=== PATIENT | female | born 1940 | race Caucasian/White ===

== ENCOUNTER 2024-02-24 19:12 | Observation (INO) | payer MEDICARE, BC ==
--- NOTE | 2024-02-24 19:32 | ED ---
General Adult HPI - General Source: patient, RN notes reviewed, old records reviewed <Dain Malave - Last Filed: 02/24/24 20:47> <Dain Pizarro - Last Filed: 02/24/24 23:16> - General Stated complaint: Possibly Stroke Time Seen by Provider: 02/24/24 19:15 - History of Present Illness Initial comments: This is 83-year-old female who presents to the emergency department stating that at about 2 hours ago she started having the inability to coordinate her right hand and she had some numbness in her right hand. Patient states that lasted for about an hour and a half and then it is completely resolved at this time. Patient states she was trying to text her daughter but she was unable to coordinate her hand to do so. Denies any headache. Patient denies any other weakness or numbness. Patient denies any visual disturbance. Patient denies any speech disturbance. Patient denies chest pain difficulty breathing shortness of breath. Patient Nu[place] any abdominal pain patient has nausea vomiting diarrhea. (Dain Malave) - Related Data Allergies Allergy/AdvReac Type Severity Reaction Status Date / Time No Known Allergies Allergy Verified 02/24/24 19:33 Review of Systems ROS Other: All systems not noted in ROS Statement are negative. <Dain Malave - Last Filed: 02/24/24 20:47> ROS Other: All systems not noted in ROS Statement are negative. <Dain Pizarro - Last Filed: 02/24/24 23:16> ROS Statement: Those systems with pertinent positive or pertinent negative responses have been documented in the HPI. General Exam <Dain Malave - Last Filed: 02/24/24 20:47> General appearance: alert, in no apparent distress Head exam: Present: atraumatic, normocephalic, normal inspection Eye exam: Present: normal appearance, PERRL, EOMI. Absent: scleral icterus, c onjunctival injection, periorbital swelling ENT exam: Present: normal exam, mucous membranes moist Neck exam: Present: normal inspection. Absent: tenderness, meningismus, lymphadenopathy Respiratory exam: Present: normal lung sounds bilaterally. Absent: respiratory distress, wheezes, rales, rhonchi, stridor Cardiovascular Exam: Present: regular rate, normal rhythm, normal heart sounds. Absent: systolic murmur, diastolic murmur, rubs, gallop, clicks GI/Abdominal exam: Present: soft, normal bowel sounds. Absent: distended, tenderness, guarding, rebound, rigid Extremities exam: Present: normal inspection, full ROM, normal capillary refill. Absent: tenderness, pedal edema, joint swelling, calf tenderness Back exam: Present: normal inspection Neurological exam: Present: alert, oriented X3, CN II-XII intact Psychiatric exam: Present: normal affect, normal mood Skin exam: Present: warm, dry, intact, normal color. Absent: rash <Dain Pizarro - Last Filed: 02/24/24 23:16> - General Exam Comments Initial Comments: GENERAL: Patient is well-developed and well-nourished. Patient is nontoxic and well- hydrated and is in no acute distress. ENT: Neck is soft and supple. No significant lymphadenopathy is noted. Oropharynx is clear. Moist mucous membranes. Neck has full range of motion without eliciting any pain. EYES: The sclera were anicteric and conjunctiva were pink and moist. Extraocular movements were intact and pupils were equal round and reactive to light. Eyelids were unremarkable. PULMONARY: Unlabored respirations. Good breath sounds bilaterally. No audible rales rhonchi or wheezing was noted. CARDIOVASCULAR: There is a regular rate and rhythm without any murmurs gallops or rubs. ABDOMEN: Soft and nontender with normal bowel sounds. SKIN: Skin is clear with no lesions or rashes and otherwise unremarkable. NEUROLOGIC: Patient is alert and oriented x3. Cranial nerves II through XII are grossly intact. Motor and sensory are also intact. Normal speech, volume and content. Symmetrical smile. NIH is 0 MUSCULOSKELETAL: Normal extremities with adequate strength and full range of motion. No lower extremity swelling or edema. No calf tenderness. LYMPHATICS: No significant lymphadenopathy is noted PSYCHIATRIC: Patient is very anxious. (Dain Malave) Course <Dain Pizarro - Last Filed: 02/24/24 23:16> Vital Signs 02/24/24 19:14 Temperature 98.1 F Pulse Rate 87 Respiratory 18 Rate Blood Pressure 214/92 O2 Sat by Pulse 98 Oximetry - Reevaluation(s) Reevaluation #1: 02/24/24 23:14 Records reviewed (Dain Pizarro) Reevaluation #2: 02/24/24 23:15 Symptoms are improved remain resolved (Dain Pizarro) Reevaluation #3: 02/24/24 23:15 Patient informed of results questions answered (Dain Pizarro) Reevaluation #4: 02/24/24 23:15 Differential CVA Ischemic stroke, hemorrhagic stroke, brain tumor, atypical migraine, Wernicke's encephalopathy, seizure, multiple sclerosis, meningitis, encephalitis, hypoglycemia, Guillain-Pandey, electrolytes disturbance, myasthenia gravis.... This is not meant to be an all-inclusive list (Dain Pizarro) - Consultations Consultation #1: spoke with Dr Hoffmann re admission he will see the patient (Dain Pizarro) Medical Decision Making - Lab Data Result diagrams: 02/24/24 19:55 <Dain Malave - Last Filed: 02/24/24 20:47> - Lab Data Result diagrams: 02/24/24 19:55 02/24/24 19:55 - Radiology Data Radiology results: report reviewed (CT brain CT angio, negative for acute disease), image reviewed <Dain Pizarro - Last Filed: 02/24/24 23:16> - Medical Decision Making EKG is interpreted by myself. EKG shows a sinus rhythm at 82 bpm FL interval 166 QRS is 78 QT interval is 353 QTc is 392. Patient's EKG shows no ST segment elevation or depression. Was pt. sent in by a medical professional or institution (, PA, SHORT PIECE HANDLER, urgent care, hospital, or fci...) When possible be specific @ -[No] Did you speak to anyone other than the patient for history (EMS, parent, family, police, friend...)? What history was obtained from this source @ -[No] Did you review nursing and triage notes (agree or disagree)? Why? @ -[I reviewed and agree with nursing and triage notes] Were old charts reviewed (outside hosp., previous admission, EMS record, old EKG, old radiological studies, urgent care reports/EKG's, fci records)? Report findings @ -[No old charts were reviewed] Differential Diagnosis? @ -Differential CVA Ischemic stroke, hemorrhagic stroke, brain tumor, atypical migraine, Wernicke's encephalopathy, seizure, multiple sclerosis, meningitis, encephalitis, hypoglycemia, Guillain-Pandey, electrolytes disturbance, myasthenia gravis.... This is not meant to be an all-inclusive list EKG interpreted by me (3pts min.). @ -[As above] X-rays interpreted by me (1pt min.). @ -[None done] CT interpreted by me (1pt min.). @ -[None done] U/S interpreted by me (1pt. min.). @ -[None done] What testing was considered but not performed or refused? (CT, X-rays, U/S, labs)? Why? @ -[None] What meds were considered but not given or refused? Why? @ -[None] Did you discuss the management of the patient with other professionals (professionals i.e. , PA, SHORT PIECE HANDLER, lab, RT, psych nurse, social worker psychiatric, arts and sciences dean, teacher, science and operations officer, patient case coordinator)? Give summary @ -[No] Was smoking cessation discussed for >3mins.? @ -[No] Was critical care preformed (if so, how long)? @ -[No] Were there social determinants of health that impacted care today? How? (Homelessness, low income, unemployed, alcoholism, drug addiction, transpor tation, low edu. Level, literacy, decrease access to med. care, senior care, rehab)? @ -[No] Was there de-escalation of care discussed even if they declined (Discuss DNR or withdrawal of care, Hospice)? DNR status @ -[No] What co-morbidities impacted this encounter? (DM, HTN, Smoking, COPD, CAD, Cancer, CVA, ARF, Chemo, Hep., AIDS, mental health diagnosis, sleep apnea, morbid obesity)? @ -[None] Was patient admitted / discharged? Hospital course, mention meds given and route, prescriptions, significant lab abnormalities, going to OR and other pertinent info. @ -Patient is awaiting CAT scan of her brain and CTA of her head and neck. Patient's care will be taken over by Dr. Pizarro at 9 PM (Dain Malave) 83 female will be admitted for TIA, symptoms are and remain resolved here in the emergency department. CT CTA negative patient feeling well and will admit for neurology evaluation (Dain Pizarro) - Lab Data Lab Results 02/24/24 02/24/24 02/24/24 Range/Units 19:55 19:55 19:55 WBC 4.5 (3.8-10.6) k/uL RBC 3.99 (3.80-5.40) m/uL Hgb 12.8 (11.4-16.0) gm/dL Hct 37.7 (34.0-46.0) % MCV 94.4 (80.0-100.0) fL MCH 32.1 (25.0-35.0) pg MCHC 34.1 (31.0-37.0) g/dL RDW 12.3 (11.5-15.5) % Plt Count 180 (150-450) k/uL MPV 8.2 Neutrophils % 43 % Lymphocytes % 43 % Monocytes % 8 % Eosinophils % 3 % Basophils % 1 % Neutrophils # 1.9 (1.3-7.7) k/uL Lymphocytes # 1.9 (1.0-4.8) k/uL Monocytes # 0.3 (0-1.0) k/uL Eosinophils # 0.1 (0-0.7) k/uL Basophils # 0.0 (0-0.2) k/uL PT 10.4 (10.0-12.5) sec INR 0.9 (<1.2) APTT 18.4 L (22.0-30.0) sec Sodium 136 L (137-145) mmol/L Potassium 4.3 (3.5-5.1) mmol/L Chloride 104 (98-107) mmol/L Carbon Dioxide 27 (22-30) mmol/L Anion Gap 5 mmol/L BUN 18 H (7-17) mg/dL Creatinine 0.83 (0.52-1.04) mg/dL Est GFR (CKD-EPI)AfAm 75 (>60 ml/min/1.73 sqM) Est GFR (CKD-EPI)NonAf 65 (>60 ml/min/1.73 sqM) Glucose 230 H (74-99) mg/dL Calcium 9.6 (8.4-10.2) mg/dL Total Bilirubin 0.6 (0.2-1.3) mg/dL AST 23 (14-36) U/L ALT 20 (4-34) U/L Alkaline Phosphatase 87 (38-126) U/L Creatine Kinase 31 (30-135) U/L Troponin I (0.000-0.034) ng/mL Total Protein 6.0 L (6.3-8.2) g/dL Albumin 3.7 (3.5-5.0) g/dL 02/24/24 Range/Units 19:55 WBC (3.8-10.6) k/uL RBC (3.80-5.40) m/uL Hgb (11.4-16.0) gm/dL Hct (34.0-46.0) % MCV (80.0-100.0) fL MCH (25.0-35.0) pg MCHC (31.0-37.0) g/dL RDW (11.5-15.5) % Plt Count (150-450) k/uL MPV Neutrophils % % Lymphocytes % % Monocytes % % Eosinophils % % Basophils % % Neutrophils # (1.3-7.7) k/uL Lymphocytes # (1.0-4.8) k/uL Monocytes # (0-1.0) k/uL Eosinophils # (0-0.7) k/uL Basophils # (0-0.2) k/uL PT (10.0-12.5) sec INR (<1.2) APTT (22.0-30.0) sec Sodium (137-145) mmol/L Potassium (3.5-5.1) mmol/L Chloride (98-107) mmol/L Carbon Dioxide (22-30) mmol/L Anion Gap mmol/L BUN (7-17) mg/dL Creatinine (0.52-1.04) mg/dL Est GFR (CKD-EPI)AfAm (>60 ml/min/1.73 sqM) Est GFR (CKD-EPI)NonAf (>60 ml/min/1.73 sqM) Glucose (74-99) mg/dL Calcium (8.4-10.2) mg/dL Total Bilirubin (0.2-1.3) mg/dL AST (14-36) U/L ALT (4-34) U/L Alkaline Phosphatase (38-126) U/L Creatine Kinase (30-135) U/L Troponin I <0.012 (0.000-0.034) ng/mL Total Protein (6.3-8.2) g/dL Albumin (3.5-5.0) g/dL Critical Care Time Critical Care Time: Yes Total Critical Care Time: 31 <Dain Pizarro - Last Filed: 02/24/24 23:16> Disposition <Dain Malave - Last Filed: 02/24/24 20:47> Is patient prescribed a controlled substance at d/c from ED?: No Time of Disposition: 23:05 <Dain Pizarro - Last Filed: 02/24/24 23:16> Clinical Impression: Transient cerebral ischemia Disposition: ADMITTED IP TO THIS HOSP Condition: Fair Referrals: None,Stated [REFERRING] - 1-2 days
[2024-02-24] MEDS: LORazepam 2 MG/ML INJ IV STA (19:44)
[2024-02-24] MEDS: SODIUM CHLORIDE 0.9% 500 ML 500 ML IV STA ×2 (19:47→23:10)
[2024-02-24 20:17] LABS: Basophils % (A) 1 %; Eosinophils # (A) 0.1 k/uL (0-0.7); Eosinophils % (A) 3 %; HCT 37.7 % (34.0-46.0); HGB 12.8 gm/dL (11.4-16.0); Lymphocytes # (A) 1.9 k/uL (1.0-4.8); Lymphocytes % (A) 43 %; MCH 32.1 pg (25.0-35.0); MCHC 34.1 g/dL (31.0-37.0); MCV 94.4 fL (80.0-100.0); Mean Platelet Volume 8.2; Monocytes # (A) 0.3 k/uL (0-1.0); Monocytes % (A) 8 %; Neutrophils # (A) 1.9 k/uL (1.3-7.7); Neutrophils % (A) 43 %; Platelet Count 180 k/uL (150-450); RBC 3.99 m/uL (3.80-5.40); RDW 12.3 % (11.5-15.5); WBC 4.5 k/uL (3.8-10.6)
[2024-02-24 20:32] LABS: INR 0.9 (<1.2)
[2024-02-24 20:33] LABS: Prothrombin Time 10.4 sec (10.0-12.5)
[2024-02-24 20:37] LABS: Partial Thromboplastin Time 18.4 sec (22.0-30.0)
[2024-02-24 20:48] LABS: ALT 20 U/L (4-34); AST 23 U/L (14-36); African American GFR (CKD) 75 (>60 ml/min/1.73 sqM); Albumin 3.7 g/dL (3.5-5.0); Alkaline Phosphatase 87 U/L (38-126); Anion Gap 5 mmol/L; Blood Urea Nitrogen 18 mg/dL (7-17); Calcium 9.6 mg/dL (8.4-10.2); Carbon Dioxide 27 mmol/L (22-30); Chloride 104 mmol/L (98-107); Creatine Kinase 31 U/L (30-135); Glucose 230 mg/dL (74-99); Non-African American GFR(CKD) 65 (>60 ml/min/1.73 sqM); Potassium 4.3 mmol/L (3.5-5.1); Sodium 136 mmol/L (137-145); Total Bilirubin 0.6 mg/dL (0.2-1.3)
--- NOTE | 2024-02-24 21:44 | CT ---
EXAMINATION TYPE: CT brain wo con DATE OF EXAM: 02/24/2024 COMPARISON: None INDICATION: Limited motor skills in hands after nap, hx of DVT AND Hypertension. DLP: 1496.9 mGycm, Automated exposure control for dose reduction was used. CONTRAST: None CT of the brain is performed utilizing 3 mm thick sections through the posterior fossa and 3 mm thick sections through the remaining calvarium. Study is performed within 24 hours of arrival to the hosp ital. No abnormal hyperdensity is present to suggest an acute intracranial hemorrhage. No mass lesion is evident. No acute infarcts are evident. Patchy and confluent periventricular white matter hypodensity is prese nt, likely on the basis of chronic white matter ischemic changes. Ventricles and sulci are prominent for the patient age. Paranasal sinuses and mastoid air cells within the [id number] are clear. IMPRESSION: 1. Atrophy with chronic influent periventricular white matter ischemic-type changes. 2. No acute intracranial process radiographically apparent, MRI follow-up can be performed as clinica lly indicated.
--- NOTE | 2024-02-24 21:53 | XR ---
EXAMINATION TYPE: XR chest 2V DATE OF EXAM: 02/24/2024 COMPARISON: None INDICATION: Altered mental status TECHNIQUE: Frontal and lateral views of the chest are obtained. FINDINGS: The heart size is enlarged. The pulmonary vasculature is normal. No suspicious focal consolidations.. IMPRESSION: 1. Cardiomegaly
--- NOTE | 2024-02-24 21:59 | CT ---
EXAMINATION TYPE: CT angio head neck DATE OF EXAM: 02/24/2024 HISTORY: Limited motor skills in hands after nap, hx of DVT AND Hypertension. COMPARISON: None CT DLP: 1496.9 mGycm. Automated Exposure Control for Dose Reduction was Utilized. TECHNIQUE: CTA scan of the neck is performed without and with IV Contrast, patient injected with 65 mL of Isovue 370, axial images are obtained, coronal and sagittal reformatted images are reviewed. Th ree-D reconstructed images are created on an independent workstation and reviewed. Source images are reviewed. FINDINGS: Carotid/Vascular Structures: There is a 3 vessel arch. Common carotid arteries bifurcate into internal and external carotid arteries without significant coleman w limiting stenosis. Vertebral arteries are codominant. Internal carotid arteries and vertebral arteries are patent to the skull base. Cervical of [place]: Vertebral basilar system appears normal. Posterior cerebral vasculature is unrema rkable. Internal carotid arteries bifurcate normally into A1 and M1 segments. A2 segments are normal. The anterior communicating artery is small but appears patent. The right posterior communicating artery is absent. The left posterior communicating artery is patent. Other: There is prominence and heterogeneity of the thyroid. Follow-up with thyroid ultrasound recomm ended. IMPRESSION: 1. No flow-limiting stenosis bilateral carotid bifurcations. 2. Normal [place] 3. Enlarged heterogenous thyroid. Follow up ultrasound when the patient is stable. NASCET criteria was used in interpretation of this exam?
[2024-02-24] MEDS: LABETALOL 5 MG/ML VIAL MDV IVP STA (22:17)
[2024-02-24] MEDS: SODIUM CHLORIDE 0.9% 1,000 ML IV STA (23:11)
[2024-02-24] MEDS: ASPIRIN 325 MG TAB PO STA (23:34)
[2024-02-25] MEDS ORDERED: IPRATROPIUM-ALBUTEROL 3 ML NEB INHALATION PRN (01:45)
[2024-02-25] MEDS: LORazepam 2 MG/ML INJ IV PRN (02:15)
[2024-02-25] MEDS: hydrALAZINE HCL 20 MG/ML 1 ML VIAL IVP PRN (02:15)
[2024-02-25 03:22] LABS: Appearance,Urine Clear (Clear); Bilirubin,Urine Negative (Negative); Blood,Urine Negative (Negative); Color,Urine Colorless; Glucose,Urine (UA) Negative (Negative); Ketones,Urine Negative (Negative); Leukocyte Esterase,Urine Negative (Negative); Nitrite,Urine Negative (Negative); PH, Urine 6.5 (5.0-8.0); Protein,Urine Negative (Negative); Specific Gravity,Urine 1.036 (1.001-1.035); Urobilinogen,Urine <2.0 mg/dL (<2.0)
[2024-02-25] MEDS ORDERED: carvediloL 12.5 MG TAB PO SCH (07:30)
[2024-02-25 08:06] LABS: Glucose,Whole Blood 142 mg/dL (70-110)
[2024-02-25] MEDS: carvediloL 12.5 MG TAB PO SCH (08:28)
[2024-02-25] MEDS: MONTELUKAST 10 MG TAB PO SCH (08:46)
[2024-02-25] MEDS: LORATADINE 10 MG TAB PO SCH (08:46)
[2024-02-25] MEDS: METOPROLOL TARTRATE 50 MG TAB PO SCH (08:46)
[2024-02-25] MEDS: ASPIRIN 325 MG TAB PO SCH (08:46)
[2024-02-25] MEDS: methIMAzole 5 MG TAB PO SCH (08:47)
[2024-02-25] MEDS ORDERED: METOPROLOL TARTRATE 50 MG TAB PO SCH (09:00)
[2024-02-25 09:25] LABS: Chol/HDL Ratio 2.22 Ratio; LDL Cholesterol,Calculated 44.1 mg/dL (0.0-131.0)
--- NOTE | 2024-02-25 11:11 | CA ---
Transthoracic Echo Report Name: Brittney Norman Age: 83 Gender: F : 1940 Exam Date: 02/25/2024 09:44 Exam Location: [facility] Ht (in): 61 Wt (lb): 145 Ordering Physician: Dain Pizarro DO Attending/Referring Phys: [id number], Moira [employer] Helper Beverley Mendez RDCS Procedure CPT: Indications: Thrombus Cardiac Hx: Technical Quality: Good Contrast 1: Total Dose (mL): Contrast 2: Total Dose (mL): MEASUREMENTS (Male / Female) Normal Values 2D ECHO LV Diastolic Diameter PLAX 4.1 cm 4.2 - 5.9 / 3.9 - 5.3 cm LV Systolic Diameter PLAX 2.3 cm IVS Diastolic Thickness 0.9 cm 0.6 - 1.0 / 0.6 - 0.9 cm LVPW Diastolic Thickness 1.1 cm 0.6 - 1.0 / 0.6 - 0.9 cm LV Relative Wall Thickness 0.5 RV Internal Dim ED PLAX 3.1 cm LA Systolic Diameter LX 3.2 cm 3.0 - 4.0 / 2.7 - 3.8 cm LV Diastolic Volume MOD 4C 103.2 cm??? LV Systolic Volume MOD 4C 44.7 cm??? LV Ejection Fraction MOD 4C 56.7 % LV Cardiac Index MOD 4C 2612.4 cm???/min???m??? LV Diastolic Length 4C 8.3 cm LV Systolic Length 4C 6.7 cm LV Diastolic Volume MOD 2C 86.6 cm??? LV Systolic Volume MOD 2C 43.4 cm??? LV Ejection Fraction MOD 2C 49.9 % LV Cardiac Index MOD 2C 1930.2 cm???/min???m??? LV Diastolic Length 2C 8.9 cm LV Systolic Length 2C 6.9 cm LA Volume 76.2 cm??? 18 - 58 / 22 - 52 cm??? LA Volume Index 44.8 cm???/m??? 16 - 28 cm???/m??? M-MODE Aortic Root Diameter MM 3.1 cm AV Cusp Separation MM 2.2 cm DOPPLER AV Peak Velocity 167.2 cm/s AV Peak Gradient 11.2 mmHg MV Area PHT 4.6 cm??? Mitral E Point Velocity 165.6 cm/s Mitral A Point Velocity 117.7 cm/s Mitral E to A Ratio 1.4 MV Deceleration Time 163.9 ms TR Peak Velocity 349.9 cm/s TR Peak Gradient 49.0 mmHg Right Ventricular Systolic Press 52.7 mmHg FINDINGS Left Ventricle Left ventricular ejection fraction is estimated at 55-60 %. Left ventricular cavity size normal. Mildly increased posterior wall thickness. Normal left ventricular wall motion. Right Ventricle Normal right ventricular size and function. Moderate pulmonary hypertension. Right Atrium Normal right atrial size. No right atrial thrombus or mass seen. Left Atrium Severely increased left atrial volume. Mildly increased left atrial area. Mitral Valve Structurally normal mitral valve. Mitral annular calcification. Trace mitral regurgitation. Aortic Valve Trileaflet aortic valve. No aortic valve stenosis or regurgitation. Tricuspid Valve Structurally normal tricuspid valve. Mild tricuspid regurgitation. Pulmonic Valve Structurally normal pulmonic valve. Trace pulmonic regurgitation. Pericardium No pericardial or pleural effusion. Aorta Normal size aortic root and proximal ascending aorta. CONCLUSIONS Normal LV size and systolic function. Mild concentric LVH. Mild mitral and mild to moderate tricuspid regurgitation with moderate pulmonary hypertension. No pericardial effusion Previewed by: Dr. Kip Haynes MD (Electronically Signed) Final Date: 25 February 2024 11:09
--- NOTE | 2024-02-25 18:32 | P.CNNES ---
History of Present Illness Consult date: 02/25/24 Requesting physician: Dain Pizarro Reason for Consult: TIA History of Present Illness: Patient is a 83-year-old right-handed female came to the hospital by ambulance yesterday at 7:12 PM for strokelike symptoms. 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 She receives intraocular injections periodically and has had numerous shots in the eyes over the last 8 years. She had another one performed yesterday afternoon with [facility]. Usually after injection, she has difficulty with the patient and she could not see very well after the injection. She came home at 4 PM and laid down in the couch on the left side, slept for half an hour. When she woke up from sleep, she apparently had some transient aphasia. She could not get right words out quickly like she used to doing. Patient also noticed transient numbness of the right hand but it resolved within 2 to 3 minutes. She had difficulty with texting with the right hand, could not get the words. I spoke to patient's daughter on the phone, who is in [place], who concurred that patient was having trouble with texting, and while speaking she was stuttering, and she was stuck on letter "I". She could not talk. The symptoms lasted long enough for her daughter to know that something was not right. Patient's daughter lives in [place]. She called her ex-, who lives in [facility], who called 911 and patient was brought to the hospital. Patient and her daughter believes that the symptoms lasted no more than 15 to 20 minutes. Patient states that during this event, she checked herself on the mirror, and there was no facial droop. She walked to the ambulance and did not have any issues with the legs. She does use cane, because of bad knees. As per EMS flow sheet patient's family were on the scene states that she was having strokelike symptoms after she woke up one hour ago. EMS performed stroke scale and was negative. Patient has history of hypertension and controlled diabetes. Patient's vitals at the scene was blood pressure 249/113, which came down to 226/112. Pulse rate 99 and respirations 18 and saturation 97%. Blood glucose was 220. Vital signs on arrival blood pressure 214/92, which came down to 177/71. Pulse normal 87, temperature 98.1. Blood test shows normal CBC, normal INR. Sodium 136 potassium 4.3, normal renal and hepatic panel. Troponin negative. UA negative. EKG showed sinus rhythm. Chest x-ray showed cardiomegaly. CT head revealed atrophy with chronic confluent periventricular white matter ischemic Changes. No acute intracranial process radiographically apparently. I personally reviewed CT head, agree with the findings. Home medications include methimazole, metoprolol, Singulair, [place]. Patient does not take any antiplatelet medication. No previous history of strokes or TIA. Patient states she had history of DVT in the left leg about a year ago. She was placed on Eliquis for 6 months and then it was discontinued. Patient has never smoked tobacco, does not drink alcohol. Review of Systems All pertinent positive and negative review of systems mentioned above. Oth erwise completely negative. Past Medical History Past Medical History: Deep Vein Thrombosis (DVT) Additional Past Medical History / Comment(s): left eye wet MD History of Any Multi-Drug Resistant Organisms: None Reported Past Surgical History: Tonsillectomy Additional Past Surgical History / Comment(s): catarax surgery both eyes Past Psychological History: No Psychological Hx Reported Smoking Status: Never smoker Past Alcohol Use History: None Reported Past Drug Use History: None Reported Medications and Allergies Home Medications Medication Instructions Recorded Confirmed Type Fexofenadine HCl [[place] Allergy] 180 mg PO DAILY 02/25/24 02/25/24 History Furosemide [Lasix] 40 mg PO DAILY PRN 02/25/24 02/25/24 History Metoprolol Tartrate [Lopressor] 50 mg PO BID 02/25/24 02/25/24 History Montelukast [Singulair] 10 mg PO BID 02/25/24 02/25/24 History Potassium Chloride [Klor-Con M10] 10 meq PO DAILY PRN 02/25/24 02/25/24 History Triamcinolone Acetonide [Nasacort] 1 spray EA NOSTRIL DAILY 02/25/24 02/25/24 History methIMAzole [Tapazole] 5 mg PO DAILY 02/25/24 02/25/24 History Allergies Allergy/AdvReac Type Severity Reaction Status Date / Time No Known Allergies Allergy Verified 02/25/24 08:56 Physical Examination - Vital Signs Vital Signs: Vital Signs Temp Pulse Pulse Resp BP BP Pulse Ox 02/25/24 04:00 75 17 154/63 97 02/25/24 02:50 160/58 02/25/24 02:01 73 17 196/89 99 02/25/24 01:01 173/79 02/25/24 00:51 72 181/77 97 02/25/24 00:44 73 17 202/83 98 02/25/24 00:31 72 17 189/90 99 02/24/24 23:13 74 17 177/71 97 02/24/24 19:14 98.1 F 87 18 214/92 98 Intake and Output 02/24/24 02/25/24 02/25/24 22:59 06:59 14:59 Other: Voiding Method External Catheter Weight 65.771 kg Patient is an elderly female, very pleasant, in no acute distress. Patient is alert awake oriented to time place and person. Patient knows it is 02/25/2024 and that she is in [facility] in [facility]. Speech and language functions are normal. Patient can name and repeat very well. No aphasia or dysarthria. Attention, concentration and fund of knowledge is adequate. On cranial nerve examination, pupils are equal, round and reacting to light, visual bolanos are full on confrontation, with no neglect on double simultaneous stimulation. Extraocular muscles are intact with no nystagmus. Face is symmetric, tongue protrudes to the midline. Palatal elevation and sensation normal, hearing and shoulder shrug normal, facial sensation normal. On muscle strength testing, there is no pronator drift and the strength is abdelrahman l in arms and legs distally and proximally. Deep tendon reflexes are symmetric 1 in the upper limbs, 1+ in the lower limbs and plantars downgoing. Sensory to touch is equal with no neglect on double simultaneous stimulation. Cerebellar function showed no ataxia for [id number] testing. No dys diadochokinesia. No ataxia for [id number] testing on either side. Tone and bulk of muscles normal. Gait deferred.. On general examination, there is no carotid bruit or murmur, S1-S2 audible. Ch est is clear on consultation. Abdomen is soft nontender. No organomegaly, bowel sounds present. Peripheral pulses are present. Patient has mild peripheral edema. Results - Laboratory Findings CBC and BMP: 02/24/24 19:55 02/24/24 19:55 Abnormal Lab Findings: Abnormal Labs 02/24/24 02/24/24 02/25/24 19:55 19:55 02:48 APTT 18.4 L Sodium 136 L BUN 18 H Glucose 230 H POC Glucose (mg/dL) Total Protein 6.0 L Ur Specific [place] 1.036 H 02/25/24 08:05 APTT Sodium BUN Glucose POC Glucose (mg/dL) 142 H Total Protein Ur Specific [place] Assessment and Plan Assessment: * TIA, manifesting with transient aphasia, difficulty with texting, and right hand numbness. Symptoms resolved within 15 to 20 minutes. Differential diagnosis also includes hypertensive encephalopathy due to accelerated hypertension. * Hypertension, uncontrolled * Diabetes, diet controlled * History of DVT, treated with Eliquis for 6 months, off Eliquis for almost 6 months. * Wet macular degeneration left eye. Plan: * MRI of the brain without contrast, evaluate for acute CVA * 2-D echo revealed normal left ventricular size and systolic function with EF 55 to 60%. Mildly increased posterior wall thickness. Mild concentric LVH. Normal right atrial size. No right atrial thrombus or mass. Severely increased left atrial volume. * CTA head and neck showed: No flow-limiting stenosis bilateral carotid bifurc ation. Normal [place] of [place]. In large heterogeneous thyroid. Follow-up ultrasound when patient is stable. We will defer to IM regarding thyroid abnormality. * Fasting a.m. lipid panel with cholesterol 131, LDL 44, HDL 58, triglycerides 140. Patient started on Lipitor 80 mg daily. We will decrease to 40 mg. * Hemoglobin A1c 6.9. * Permissive hypertension for next 24-48 hours * Start aspirin 325 mg daily. We will avoid dual antiplatelet therapy because of left intraocular injection just done yesterday. To avoid any intraocular bleed. * Neuro checks every 4 hours. * Telemetry monitoring rule out any arrhythmia * PT, OT, speech therapy * DVT prophylaxis: Heparin 5000 units subcu every 8 hours * Dr. Jeramie Loaiza will continue to follow in the morning. Thank you for the consult. Time with Patient: Greater than 30
[2024-02-25] MEDS: HEPARIN SODIUM,PORCINE 5,000 UNIT/ML 1 ML VIAL SQ SCH (19:42)
[2024-02-25] MEDS: ATORVASTATIN 40 MG TAB PO SCH (20:19)
[2024-02-25] MEDS ORDERED: ATORVASTATIN 80 MG TAB PO SCH (21:00)
--- NOTE | 2024-02-26 01:07 | HP ---
HISTORY AND PHYSICAL HISTORY OF PRESENT ILLNESS: 83-year-old female, seen in the emergency room 2 hours ago, inability to coordinate her right hand, some numbness in her right hand. As of now, it had been completely resolved when she came to the ER. She was negative for heart attacks. She denies any headache. She was found to have hypertensive acceleration. She was admitted to the hospital. Denies any abdominal pain, nausea, vomiting, diarrhea. ALLERGIES: Negative. REVIEW OF SYSTEMS: Fourteen-point review of systems otherwise negative. PHYSICAL EXAMINATION: GENERAL: Well-appearing female, in no acute distress. HEENT: Head, normocephalic and atraumatic. Pupils equal, round, and reactive. NECK: Supple. LUNGS: Decreased breath sounds. Transmitted upper airway sounds. CARDIOVASCULAR: S1 and S2. GI: Soft, nontender. EXTREMITIES: No cyanosis, clubbing, or edema. BACK: Normal on inspection. NEUROLOGIC: Cranial nerves intact. PSYCH: Fair mood and affect. SKIN: Warm and dry. VITAL SIGNS: Temperature 98.1, pulse 87, respiratory rate 16 to 18. ASSESSMENT: 1. Hypertension. 2. Encephalopathies. 3. Possible transient ischemic attack or cerebrovascular accident. PLAN: Workup in progress. So far, carotid arteries show no blockage. CAT scan of the brain is negative. Please see further orders. MMODL / IJN: [id number] /
--- NOTE | 2024-02-26 12:14 | MR ---
MRI brain without contrast. HISTORY: TIA/CVA COMPARISON: None. TECHNIQUE: Multiecho multiplanar images the brain were obtained without contrast. FINDINGS: On the T1-weighted sagittal images, the midline structures including the craniovertebral junction rel ationships are normal. The ventricles, basal cisterns and sulci over convexities are moderately enlarged consistent with mod erate generalized atrophy but appropriate for the patient's age. There is marked multifocal and confluent areas of abnormal increased signal intensity in the perivent ricular white matter and within the butch consistent with chronic ischemic white matter demyelination. Based on the diffusion-weighted images, there is no diffusion restriction or acute ischemic event. The posterior fossa including the brainstem, fourth ventricle and cerebellar pontine angles appear no rmal. The intraorbital contents appear normal and symmetric. Visualized paranasal sinuses and mastoid air c ells are well aerated. IMPRESSION: 1. Age appropriate atrophy. 2. No acute ischemic event. 3. Marked chronic ischemic white matter demyelination.
[2024-02-26] MEDS: PANTOPRAZOLE 40 MG TABLET PO SCH (12:37)
--- NOTE | 2024-02-26 12:50 | P.PN ---
Subjective Progress Note Date: 02/26/24 I am seeing the patient for the first time during this admission. Please refer to Dr. Ayala's note for further details. According the patient she recently had injection to her eye and then she was at home slept on the couch and she had her hand rested on her head while she was sleeping. Patient stated that she was in a deep heavy sleep and when she woke up her right hand was numb as well as right away she attempted to type something on her phone but she stated that she was in a heavy deep sleep and she felt off as a result difficulty texting and speech was off and resolved within 20 minutes. She denies any history of stroke in the past. Pending MRI of the brain. Objective - Vital Signs Vital signs: Vital Signs Temp 98.3 F 02/26/24 08:00 Pulse 70 02/26/24 11:23 Resp 18 02/26/24 11:23 BP 170/71 02/26/24 11:23 Pulse Ox 98 02/26/24 11:23 FiO2 21 02/26/24 08:22 Intake & Output 02/25/24 02/26/24 02/26/24 18:59 06:59 18:59 Weight 67.7 kg Other: Voiding Method Toilet Diaper # Voids 1 # Bowel Movements 1 - Exam General: Patient is sitting on the side of the bed and is not in acute distress Neuro The patient is awake alert oriented to self place and time. Is following simple commands. No aphasia. Visual bolanos are full to confrontation. Extraocular movements intact no nystagmus. No facial weakness. No dysarthria Motor is strength is strength is have any drift in upper or lower extremity - Labs CBC & Chem 7: 02/24/24 19:55 02/24/24 19:55 Labs: Abnormal Lab Results - Last 24 Hours (Table) 02/24/24 02/25/24 Range/Units 19:55 15:18 D-Dimer 1.30 H (<0.60) mg/L FEU Hemoglobin A1c 6.9 H (<=6.0) % Microbiology - Last 24 Hours (Table) 02/25/24 02:48 Urine Culture - Final Urine,Voided Assessment and Plan Assessment: * Transient aphasia, difficulty with texting, and right hand numbness. Symptoms resolved within 15 to 20 minutes. Right hand numbness could be due to as a result of her sleeping on her hand. And her difficulty texting with aphasia that was transient as could be result of her waking up from a deep sleep and she was confused but also could be due to transient ischemic attack. Other differential diagnosis also includes hypertensive encephalopathy due to accelerated hypertension. * Hypertension, uncontrolled * Diabetes, diet controlled * History of DVT, treated with Eliquis for 6 months, off Eliquis for almost 6 months. * Wet macular degeneration left eye. Plan: * MRI of the brain without contrast, evaluate for acute CVA is pending. * 2-D echo revealed normal left ventricular size and systolic function with EF 55 to 60%. Mildly increased posterior wall thickness. Mild concentric LVH. Normal right atrial size. No right atrial thrombus or mass. Severely increased left atrial volume. * CTA head and neck showed: No flow-limiting stenosis bilateral carotid bifurcation. Normal [place]. In large heterogeneous thyroid. Follow-up ultrasound when patient is stable. We will defer to IM regarding thyroid abnormality. * Fasting a.m. lipid panel with cholesterol 131, LDL 44, HDL 58, triglycerides 140. Patient started on Lipitor 80 mg daily. We will decrease to 40 mg. * Hemoglobin A1c 6.9. * Permissive hypertension for next 24 hours * Start aspirin 325 mg daily. We will avoid dual antiplatelet therapy because of left intraocular injection just done yesterday. To avoid any intraocular bleed. * Neuro checks every 4 hours. * Telemetry monitoring rule out any arrhythmia * PT, OT, speech therapy * DVT prophylaxis: Heparin 5000 units subcu every 8 hours I discussed with the patient and her nurses at bedside Time with Patient: Less than 30
--- NOTE | 2024-02-26 13:43 | PN ---
PROGRESS NOTE SUBJECTIVE: An 83-year-old white female. Temperature 97 to 98, blood pressure is 140s to 150s over 60s to 70s, 93 on 3 L, temperature 98.3, pulse 70s to 80s, respiratory rate 16 to 18, blood pressure is improved today. The patient informs to me her right arm went numb when she woke up. She came with hypertensive acceleration. She was laying on the right arm when she was sleeping, and she woke up and it was numb and she to her daughter on her phone because her arm was numb. She got scared, called EMS, and by the time she got to the ER, all the right arm numbness was resolved, waiting for stroke. OBJECTIVE: VITAL SIGNS: Blood pressure is under better control. GENERAL: She is alert and oriented x3. PSYCH: Fair mood and affect. She is able to swallow. EXTREMITIES: No extremity weakness or numbness. NEUROLOGIC: Strength 4/5 bilateral arms, legs. No slurred speech. ASSESSMENT: 1. History of hypertension. 2. Encephalopathy, rule out transient ischemic attack versus cerebrovascular accident. 3. Possible compression injury, lying on the right arm. 4. Hyperthyroidism. 5. . 6. Chronic obstructive pulmonary disease. PLAN: Continue current treatments. Wait for MRI and then possibly discharge if she is cleared from Neurology. MMODL / IJN: [id number] /
[2024-02-26 14:50] LABS: Basophils % (A) 0 %; Eosinophils # (A) 0.1 k/uL (0-0.7); Eosinophils % (A) 2 %; HCT 38.9 % (34.0-46.0); HGB 12.4 gm/dL (11.4-16.0); Lymphocytes # (A) 2.2 k/uL (1.0-4.8); Lymphocytes % (A) 37 %; MCH 30.6 pg (25.0-35.0); MCV 95.6 fL (80.0-100.0); Mean Platelet Volume 7.9; Monocytes # (A) 0.4 k/uL (0-1.0); Monocytes % (A) 7 %; Neutrophils % (A) 50 %; Platelet Count 191 k/uL (150-450); RBC 4.07 m/uL (3.80-5.40); RDW 12.2 % (11.5-15.5); WBC 5.9 k/uL (3.8-10.6)
[2024-02-26 15:00] LABS: African American GFR (CKD) 83 (>60 ml/min/1.73 sqM); Anion Gap 5 mmol/L; Blood Urea Nitrogen 16 mg/dL (7-17); Calcium 9.8 mg/dL (8.4-10.2); Carbon Dioxide 27 mmol/L (22-30); Chloride 105 mmol/L (98-107); Glucose 173 mg/dL (74-99); Non-African American GFR(CKD) 72 (>60 ml/min/1.73 sqM); Potassium 4.8 mmol/L (3.5-5.1); Sodium 137 mmol/L (137-145)
--- NOTE | 2024-02-26 16:57 | CT ---
EXAMINATION TYPE: CT angio chest DATE OF EXAM: 02/26/2024 4:42 PM COMPARISON: None HISTORY: elevated d-dimer CT DLP: 254.6 mGycm Automated exposure control for dose reduction was used. CONTRAST: CTA scan of the thorax is performed with IV Contrast, patient injected with 100 ml mL of Isovue 370, pulmonary embolism protocol. 3-D postprocessing was performed.. FINDINGS: There is a marked goiter. There is a small hiatal hernia. There are multiple scattered pulmonary nodules including a 7 mm nodule in the left lower lobe, a subp leural parenchymal nodule in the left lower lobe measuring 9 mm, a 10.2 mm nodule in the left lower l obe, 4.5 mm nodule in the right middle lobe, 3- 4 mm nodule in the left lower lobe and 3 -4 mm subple ural parenchymal left upper lobe posteriorly. There is no airspace consolidation or abnormal interstitial density. There is no pleural effusion or pneumothorax. There is marked cardiomegaly. There is no mediastinal, hilar or axillary adenopathy. There is no filling defect within the pulmonary arterial circulation to suggest pulmonary embolus. No focal osseous lesions are seen. In the visualized portions the upper evident, there are no gross osseous. IMPRESSION: 1. No evidence of pulmonary embolism. 2. Multiple pulmonary nodules the largest of which is 10.3 mm left lower lobe. Given lack of prior st udy, a 3 month follow-up CT is recommended to assess this stability of the nodules. 3. marked goiter. 4. Small hiatal hernia. 5. No acute cardiopulmonary disease. 6. marked cardiomegaly
[2024-02-27 09:17] VITALS: RESP 18; TEMP 98.4
--- NOTE | 2024-02-27 11:12 | P.PN ---
Subjective Progress Note Date: 02/27/24 I am following-up with patient and denies any new neurological issues. Feels she is at baseline from neurological perspective. Objective - Vital Signs Vital signs: Vital Signs Temp 98.4 F 02/27/24 08:00 Pulse 74 02/27/24 08:00 Resp 18 02/27/24 08:00 BP 156/69 02/27/24 08:00 Pulse Ox 98 02/27/24 08:00 FiO2 21 02/26/24 08:22 Intake & Output 02/26/24 02/27/24 02/27/24 18:59 06:59 18:59 Intake Total 240 20 10 Balance 240 20 10 Weight 67.8 kg Intake: IV 20 10 Invasive Line 2 20 10 Oral 240 Other: Voiding Method Toilet Diaper # Voids 1 # Bowel Movements 1 - Exam General: Patient is lying in bed and is not in acute distress Neuro The patient is awake alert oriented to self place and time. Is following simple commands. No aphasia. Visual bolanos are full to confrontation. Extraocular movements intact no n ystagmus. No facial weakness. No dysarthria Motor is strength is strength is have any drift in upper or lower extremity - Labs CBC & Chem 7: 02/26/24 14:09 02/26/24 14:09 Labs: Abnormal Lab Results - Last 24 Hours (Table) 02/26/24 Range/Units 14:09 Glucose 173 H (74-99) mg/dL TSH <0.015 L (0.465-4.680) mIU/L Free T4 2.40 H (0.78-2.19) ng/dL Microbiology - Last 24 Hours (Table) 02/25/24 02:48 Urine Culture - Final Urine,Voided Assessment and Plan Assessment: * Transient aphasia, difficulty with texting, and right hand numbness. Symptoms resolved within 15 to 20 minutes. Right hand numbness could be due to as a result of her sleeping on her hand. And her difficulty texting with aphasia that was transient as could be result of her waking up from a deep sleep and she was confused but also could be due to transient ischemic attack. Other differential diagnosis also includes hypertensive encephalopathy due to acc elerated hypertension. MRI Brain is negative for acute or subacute stroke. * Hypertension, uncontrolled * Diabetes, diet controlled * History of DVT, treated with Eliquis for 6 months, off Eliquis for almost 6 months. * Wet macular degeneration left eye. Plan: * MRI of the brain: It is reported as age-appropriate atrophy. No acute ischemic event. Marked chronic ischemic white matter demyelination. I personally reviewed the MRI and agree there is no acute or subacute ischemia. I feel the patient has chronic microvascular disease and this does not appear demyelination. * 2-D echo revealed normal left ventricular size and systolic function with EF 55 to 60%. Mildly increased posterior wall thickness. Mild concentric LVH. Normal right atrial size. No right atrial thrombus or mass. Severely increased left atrial volume. * CTA head and neck showed: No flow-limiting stenosis bilateral carotid bifurcation. Normal [place] of [place]. In large heterogeneous thyroid. Follow-up ultrasound when patient is stable. We will defer to IM regarding thyroid abnormality. * Fasting a.m. lipid panel with cholesterol 131, LDL 44, HDL 58, triglycerides 140. Patient started on Lipitor 80 mg daily. We will decrease to 40 mg. * Hemoglobin A1c 6.9. * Recommend normotensive blood pressure. * Start aspirin 325 mg daily. We will avoid dual antiplatelet therapy because of left intraocular injection just done yesterday. To avoid any intraocular bleed. * Neuro checks every 4 hours. * Telemetry monitoring rule out any arrhythmia * PT, OT, speech therapy * DVT prophylaxis: Heparin 5000 units subcu every 8 hours * Upon discharge recommend the patient to follow-up with a neurologist as an outpatient within 2 to 3 weeks I discussed with the patient and her nurses at bedside No further neurological workup. Will sign off. Please reconsult if needed. Time with Patient: Less than 30
[2024-02-27 12:17] VITALS: BP 169/76; PULSE 61
--- NOTE | 2024-02-27 13:25 | DS ---
DISCHARGE SUMMARY DISCHARGE MEDICINES: 1. Aspirin 325 mg daily. 2. Tapazole 10 mg daily. 3. Hydralazine 25 b.i.d. 4. Cozaar 50 mg daily. 5. DuoNeb q.i.d. 6. Lipitor 40 mg daily. 7. Protonix 40 mg daily. 8. Lopressor 50 t.i.d. 9. Singulair 10 b.i.d. 10.Fexofenadine 180 daily. 11.Nasacort 1 to 2 nasal sprays daily. CONDITION: Stable. PROGNOSIS: Guarded. Follow up in office in a week. The patient came to the hospital with hypertensive encephalopathy, treated with multiple blood pressure medicines. She had right arm paresis to get to the hospital, felt she might have a TIA probably from lying on arm because her arm not to move for about 10 minutes upon waking up in her opinion that is what caused it. MRI is negative for stroke. CTA shows multiple pulmonary nodules which will have to be followed up in 3 months with another CAT scan. Blood pressure and thyroid medicine readjusted. Prognosis guarded. Follow up as an outpatient. Condition stable. Diet as tolerated. Please see further orders. MMODL / IJN: [id number] /
[2024-02-27] MEDS ORDERED: hydrALAZINE HCL 25 MG TAB PO SCH (21:00)
[2024-02-28] MEDS ORDERED: LOSARTAN 50 MG TAB PO SCH (09:00)
[2024-02-28] MEDS ORDERED: methIMAzole 5 MG TAB PO SCH (09:00)
== END 2024-02-27 15:04 | disposition home or self-care (01) ==
LOC: EC 19:12 → 3SCARD 23:14
PROVIDERS: ADMIT Family Medicine; ATTEND Family Medicine
DX: R47.01 Aphasia (principal); R20.0 Anesthesia of skin; R27.8 Other lack of coordination; G93.40 Encephalopathy, unspecified; H35.3220 Exudative age-related macular degeneration, left eye, stage unspecified; I10 Essential (primary) hypertension; E11.9 Type 2 diabetes mellitus without complications; E05.90 Thyrotoxicosis, unspecified without thyrotoxic crisis or storm; J44.9 Chronic obstructive pulmonary disease, unspecified; Z86.718 Personal history of other venous thrombosis and embolism; Z79.82 Long term (current) use of aspirin; Z79.899 Other long term (current) drug therapy
CPT/HCPCS: 36415; 70450; 70496; 70498; 70551; 71046; 71275; 80048; 80053; 80061; 81003; 82550; 83036; 84439; 84443; 84484; 85025; 85379; 85610; 85730; 87086; 93005; 93306; 94760; 96361; 96374; 96375; 96376; 99291